=== PATIENT | female | born 1970 | race Two or more races ===

== ENCOUNTER 2021-05-01 10:29 | Outpatient (CLI) | payer OTHER | END 2021-05-01 10:36 | disposition home or self-care (01) | LOC: SONOGRAMA 10:29 | PROVIDERS: ATTEND Pathology Anatomic Pathology & Clinical Pathology | DX: E04.2 Nontoxic multinodular goiter (principal) ==

== ENCOUNTER 2024-08-10 09:47 | Outpatient (CLI) | payer OTHER | END 2024-08-10 09:53 | disposition home or self-care (01) | LOC: SONOGRAMA 09:47 | PROVIDERS: ATTEND Pathology Anatomic Pathology | DX: D34 Benign neoplasm of thyroid gland (principal); E06.3 Autoimmune thyroiditis; E04.2 Nontoxic multinodular goiter ==